=== PATIENT | female | born 1950 | race Caucasian/White ===

== ENCOUNTER 2019-02-02 01:08 | Emergency (ER) | payer MEDICARE, MEDICAID ==
[~2019-02-02] VITALS: Ht 162.6 cm; Wt 75.2 kg
[~2019-02-02 01:08] MED LIST: ALBU8HFA PO; BIOTENE; CARB15DR91 EACH EAR; CHOL10002 PO; CODE118S4 PO; ELDERBERRY PO; ESTR42.53 VG; GABA-532 PO; GUAI237S46 PO; GUAI600T45 PO; IPRA4AER IH; JOINT SUPPLEMENT PO; LACTC PO; LORA10TA7 PO; LOSA50TA3 PO; MOME220A3 INH; MONT10TA24 PO; MULT-933 PO; OMEP20TA5 PO; PREVCR VG; SIMV10TA98 PO; TURMERIC PO; VITAMIN B12 PO
[2019-02-02] MEDS ORDERED: LIDOcaine 1% w/EPI 1:200,000 injection 10mL vial IM ONE (01:45)
[2019-02-02] MEDS ORDERED: LIDOcaine 1% W/epiNEPHrine 1:100,000 20ml vial IJ ONE (01:55)
[2019-02-02 02:56] VITALS: BP 147/85
== END 2019-02-02 02:58 | disposition home or self-care (01) ==
LOC: ER 01:09
DX: S81.812A Laceration without foreign body, left lower leg, initial encounter (principal); Z79.899 Other long term (current) drug therapy; W26.8XXA Contact with other sharp object(s), not elsewhere classified, initial encounter; Y93.89 Activity, other specified; Y92.89 Other specified places as the place of occurrence of the external cause; Y99.8 Other external cause status
CPT/HCPCS: 12001; 99283